=== PATIENT | male | born 1975 | race Caucasian/White ===

== ENCOUNTER 2019-11-23 10:14 | Emergency (ER) | payer OTHER ==
[~2019-11-23] VITALS: Ht 175.3 cm; Wt 96.2 kg
[~2019-11-23 10:14] MED LIST: LIORESAL 10 MG10 MG PO; PREDNISONE 20 M20 M1 PO; TRAMADOL 50 MG50 MG PO
[2019-11-23 12:13] VITALS: BP 139/99
== END 2019-11-23 12:17 | disposition home or self-care (01) ==
LOC: M.ERS 10:14
DX: S83.8X2A Sprain of other specified parts of left knee, initial encounter (principal); X58.XXXA Exposure to other specified factors, initial encounter; Y93.89 Activity, other specified; Y92.89 Other specified places as the place of occurrence of the external cause; Y99.8 Other external cause status

== ENCOUNTER 2020-05-30 21:39 | Emergency (ER) | payer OTHER ==
[~2020-05-30] VITALS: Ht 175.3 cm; Wt 97.5 kg
[2020-05-30 22:18] LABS: ABSOLUTE BASOPHILS 0.1 thou/uL (0.0-0.2); ABSOLUTE EOSINOPHILS 0.2 thou/uL (0.0-0.7); ABSOLUTE MONOCYTES 0.5 thou/uL (0.0-1.2); ABSOLUTE NEUTROPHILS 5.2 thou/uL (1.6-8.1); BASOPHILS 0.8 %; EOSINOPHILS 3.1 %; HEMATOCRIT 48.9 % (42.0-52.0); HEMOGLOBIN 17.8 gm/dL (14.0-18.0); LYMPHOCYTES 24.9 %; MCH 34.3 pg (26.0-34.0); MCHC 36.5 g/dL (28.0-37.0); MCV 94.1 fL (80.0-100.0); MONOCYTES 6.3 %; MPV 9.1 fl. (7.2-11.1); NUCLEATED RBCS 0 /100WBC; PLATELET COUNT* 179 thou/uL (150-400); POLYS 64.9 %; RBC 5.19 mil/uL (4.50-6.00); RDW-CV 12.9 % (10.5-14.5); WBC 7.9 thou/uL (4.0-11.0)
[2020-05-30 22:21] LABS: CREATININE 1.3 mg/dL (0.6-1.3); POTASSIUM 3.9 mmol/L (3.5-5.1)
[2020-05-30 22:27] LABS: APTT 28.5 Seconds (25.0-31.3); PROTIME 10.3 Seconds (9.20-11.50)
[2020-05-30 22:32] LABS: ALBUMIN 3.9 g/dL (3.4-5.0); TOTAL BILIRUBIN 0.5 mg/dL (<0.1-1.0); TOTAL PROTEIN 7.5 g/dL (6.4-8.2)
[2020-05-31 00:56] VITALS: BP 123/86
--- NOTE | 2020-05-31 14:58 | EKG ---
[place] [address] ELECTROCARDIOGRAM REPORT Name: MARY GILES Room: [facility]#: [id number] Admission: 05/30/20 Attend Phys: Discharge: 05/31/20 Date of : 77 Date of Service: 05/30/202144 Report #: [id number] THIS REPORT FOR: //name// [facility] ED Test Date: 2020-05-30 Test Time: 21:45:56 Pat Name: MARY GILES Department: Room: Gender: Patrol Lady: RAIN : 1975 Requested By: Marti Parker Order Number: [id number] MD: Donald Neff Measurements Intervals [place] Rate: 86 P: -34 WY: 136 QRS: 73 QRSD: 96 T: 40 QT: 360 QTc: 431 Interpretive Statements Sinus rhythm Baseline wander in lead(s) II,III,aVF Compared to ECG 07/27/2006 22:07:51 No significant changes Electronically Signed On 05-31-2020 14:58:39 CDT by Donald Neff [email or web address] <ELECTRONICALLY SIGNED> By: Donald Neff MD, [facility] 05/31/20 1458 [id number] Donald Neff MD, [facility] /EPI
== END 2020-05-31 00:57 | disposition home or self-care (01) ==
LOC: M.ERS 21:39
PROVIDERS: Personal Emergency Response Attendant
DX: R07.89 Other chest pain (principal); M79.602 Pain in left arm; F17.210 Nicotine dependence, cigarettes, uncomplicated